=== PATIENT | female | born 1965 | race Two or more races ===

== ENCOUNTER 2024-07-18 23:56 | Emergency (ER) | payer OTHER ==
[~2024-07-18] VITALS: Ht 162.6 cm; Wt 83.0 kg
[2024-07-19] MEDS ORDERED: METOCLOPRAMIDE HCL 5 MG/ML VIAL IM STA (01:32)
[2024-07-19] MEDS ORDERED: HYOSCYAMINE SULFATE 0.125 MG TAB.SUBL SL STA (01:33)
[2024-07-19] MEDS ORDERED: ONDANSETRON HCL 2 MG/ML VIAL IV STA (01:34)
[2024-07-19] MEDS ORDERED: RINGERS SOLUTION,LACTATED 1,000 ML IV STA (01:34)
[2024-07-19] MEDS ORDERED: FAMOtidine 10 MG/ML (4ML VIAL) IV PUSH STA (01:35)
[2024-07-19] MEDS ORDERED: DIPHENOXYLATE HCL/ATROPINE 1 UDTAB TABLET PO STA (01:36)
[2024-07-19 02:54] LABS: HEMATOCRIT 41.7 % (36.0-45.00); HEMOGLOBIN 14.5 g/dL (12.0-15.00); MEAN CELL VOLUME 86.5 fL (80.00-100.00); MEAN CORPUSCULAR HEMOGLOBIN 30.1 pg (27.00-32.0); MEAN CORPUSCULAR HGB CONC 34.8 g/dl (32.0-36.0); PLATELET COUNT 263 K/uL (150-450); RED BLOOD COUNT 4.82 M/uL (4.00-6.00); RED CELL DISTRIBUTION WIDTH 13.6 % (11.5-14.5)
[2024-07-19 03:20] LABS: CALCIUM 9.4 mg/dL (8.5-10.1); CREATININE SERUM 0.86 mg/dL (0.55-1.02); GFR 67.31; POTASSIUM 4.34 mEq/L (3.5-5.1)
== END 2024-07-19 05:50 | disposition home or self-care (01) ==
LOC: EDBD 23:57 → ER 23:57
DX: K52.89 Other specified noninfective gastroenteritis and colitis (principal); Z88.8 Allergy status to other drugs, medicaments and biological substances